=== PATIENT | female | born 1965 | race Caucasian/White ===

== ENCOUNTER 2022-03-12 11:34 | Emergency (ER) | payer MEDICAID ==
[~2022-03-12] VITALS: Ht 165.1 cm; Wt 104.3 kg
[2022-03-12 11:43] VITALS: BP 143/73
--- NOTE | 2022-03-12 11:47 | NUR ---
WALKED IN C/O CP ONSET 1 WK AND DIZZINESS ACCOMPANIED BY SOB ONSET 2 WKS. STATES MIDSTERNAL NONRADIATING PAIN. DENIES ANY CARDIAC HX. ON ROOM AIR, VITALS STABLE, ON MONITOR. AAOX4, AMBULATORY. PMH: ACTIVE SMOKER, HTN (NONCOMPLIANT W/ MEDS).
--- NOTE | 2022-03-12 12:42 | NUR ---
xr at bedside. urine collected
[2022-03-12 13:54] LABS: BASOPHILS % (AUTO) 0.5 % (0.0-2.0); EOSINOPHILS # (AUTO) 0.2 K/uL (0-0.4); HEMATOCRIT 34.5 % (36-48); HEMOGLOBIN 11.4 g/dL (12.0-16.0); LYMPHOCYTES # (AUTO) 1.6 K/uL (2.5-16.5); LYMPHOCYTES % (AUTO) 38.4 % (20.5-51.1); MEAN CORPUSCULAR HEMOGLOBIN 29 pg (27-31); MEAN CORPUSCULAR HGB CONC 33 g/dL (33-37); MEAN CORPUSCULAR VOLUME 87.9 fL (80-94); MONOCYTES # (AUTO) 0.6 K/uL (0.8-1.0); MONOCYTES % (AUTO) 13.4 % (1.7-9.3); NEUTROPHILS # (AUTO) 1.8 K/uL (1.8-7.7); NEUTROPHILS % (AUTO) 42.7 % (42.2-75.2); PLATELET COUNT (AUTO) 167 K/uL (140-450); RED BLOOD CELL COUNT(AUTO) 3.92 MIL/uL (4.20-5.40); RED CELL DISTRIBUTION WIDTH 13.3 % (11.6-13.7); WHITE BLOOD COUNT (AUTO) 4.1 K/uL (4.8-10.8)
[2022-03-12 14:13] LABS: ALBUMIN 3.1 g/dL (3.4-5.0); ANION GAP 9.7 (8-16); CARBON DIOXIDE 28.6 mmol/L (21-32); CREATININE 0.6 mg/dL (0.6-1.3); POTASSIUM 3.3 mmol/L (3.5-5.1); TOTAL BILIRUBIN 0.2 mg/dL (0.0-1.0)
[2022-03-12 14:21] VITALS: BP 148/76
[2022-03-12 14:30] LABS: PROTHROMBIN TIME 10.7 secs (10.8-13.4)
--- NOTE | 2022-03-12 14:54 | NUR ---
Patient discharged with v/s stable. Written and verbal after care instructions given and explained. Patient verbalized understanding. Ambulatory with steady gait. All questions addressed prior to discharge. Advised to follow up with PMD.
== END 2022-03-12 14:54 | disposition home or self-care (01) ==
LOC: MED 11:34
DX: R07.89 Other chest pain (principal); I82.409 Acute embolism and thrombosis of unspecified deep veins of unspecified lower extremity; F17.200 Nicotine dependence, unspecified, uncomplicated; F15.90 Other stimulant use, unspecified, uncomplicated; Z90.49 Acquired absence of other specified parts of digestive tract; Z98.890 Other specified postprocedural states; Z72.89 Other problems related to lifestyle
CPT/HCPCS: 36415; 71045; 80053; 81002; 81025; 83880; 84484; 85025; 85610; 85730; 93005; 93970; 99285; Q0092